=== PATIENT | female | born 1990 | race African-American/Black ===

== ENCOUNTER 2019-04-21 21:23 | Emergency (ER) | payer OTHER, SELFPAY ==
[2019-04-21] MEDS ORDERED: Acetaminophen/Codeine 30-300mg Tablet ONE (21:45)
[2019-04-21] MEDS ORDERED: Adacel (T-DAP) 0.5 ML SYRINGE ONE (21:46)
[2019-04-21 21:52] LABS: Pregnancy Test - Urine (BHCG) Negative (Negative); Pregu Control Background? CLEAR/WHITE (CLR/WHITE); Pregu Control Bar Appear? YES (CONTROL BAR); Specific Gravity 1.028 (1.002-1.036)
--- NOTE | 2019-04-21 22:25 | CT ---
EXAM: CT brain without contrast HISTORY: Fall with head trauma COMPARISON: None TECHNIQUE: Multiple contiguous axial images were obtained and a CT of the brain without contrast. FINDINGS: The brain is normal in morphology and attenuation without focal lesions or confluent areas of infarction. There is no evidence of hydrocephalus, intracranial hemorrhage, or extra-axial fluid collection. The calvarium and overlying soft tissues are unremarkable. The visualized paranasal sinuses and masto id air cells are well aerated. IMPRESSION: No evidence of acute intracranial abnormality
[2019-04-21] MEDS ORDERED: Lidocaine 1% w/Epinephrine 1:100K 20 ML VIAL ONE (22:38)
== END 2019-04-21 23:57 | disposition home or self-care (01) ==
LOC: ERS 21:23
DX: S01.01XA Laceration without foreign body of scalp, initial encounter (principal); Z23 Encounter for immunization; W22.8XXA Striking against or struck by other objects, initial encounter
CPT/HCPCS: 12002; 70450; 81025; 90471; 90715; J2001

== ENCOUNTER 2019-05-08 11:04 | Emergency (ER) | payer OTHER | END 2019-05-08 11:43 | disposition home or self-care (01) | LOC: ERS 11:04 | DX: S01.01XD Laceration without foreign body of scalp, subsequent encounter (principal) ==

== ENCOUNTER 2019-09-22 08:09 | Emergency (ER) | payer OTHER | END 2019-09-22 09:54 | disposition home or self-care (01) | LOC: ERS 08:09 | DX: J02.9 Acute pharyngitis, unspecified (principal); F17.290 Nicotine dependence, other tobacco product, uncomplicated | CPT/HCPCS: 87081; 87430 ==

== ENCOUNTER 2023-09-25 17:53 | Emergency (ER) | payer BC, OTHER ==
[2023-09-25] MEDS ORDERED: Ibuprofen 800 MG TAB ONE (18:45)
[2023-09-25 19:27] LABS: SARS-CoV-2 NAA Rapid Test Not Detected (NotDetected)
== END 2023-09-25 19:59 | disposition home or self-care (01) ==
LOC: ERS 17:53
DX: J10.1 Influenza due to other identified influenza virus with other respiratory manifestations (principal); F17.290 Nicotine dependence, other tobacco product, uncomplicated; Z20.822 Contact with and (suspected) exposure to COVID-19
CPT/HCPCS: 99283